=== PATIENT | female | born 1965 | race African-American/Black ===

== ENCOUNTER 2025-03-22 15:48 | Emergency (ER) | payer OTHER ==
[~2025-03-22] VITALS: Ht 172.7 cm; Wt 87.1 kg
[2025-03-22 16:00] VITALS: BP 164/100; TEMP 98.3; O2SAT 98
[2025-03-22] MEDS ORDERED: IBUPROFEN 600 MG TABLET ONE (16:39)
[2025-03-22] MEDS: IBUPROFEN 600 MG TABLET PO ONE (16:42)
== END 2025-03-22 17:10 | disposition home or self-care (01) ==
LOC: ER 16:00
DX: S60.221A Contusion of right hand, initial encounter (principal); S60.222A Contusion of left hand, initial encounter; W23.1XXA Caught, crushed, jammed, or pinched between stationary objects, initial encounter; Y93.89 Activity, other specified; Y92.89 Other specified places as the place of occurrence of the external cause; Y99.8 Other external cause status
CPT/HCPCS: 73130-TC